=== PATIENT | female | born 1990 | race Two or more races ===

== ENCOUNTER 2018-12-07 01:26 | Emergency (ER) | payer OTHER, MEDICAID ==
[~2018-12-07] VITALS: Ht 160 cm; Wt 82.1 kg
[~2018-12-07 01:26] MED LIST: BENADRYL25 MG ORAL; PREDNISONE20 MG ORAL
[2018-12-07 01:42] VITALS: BP 141/74
--- NOTE | 2018-12-07 01:42 | NUR ---
ED Nurse Note: Pt arrived ED from home, c/o left ear pain 6/10 started tonight. Pt is A/O X 4. Vital signs stable at this time, waiting for orders.
[2018-12-07] MEDS ORDERED: IBUPROFEN600 MG ORAL (02:06)
[2018-12-07] MEDS ORDERED: CIPRODEX OTIC7.5 M1 LEFT EAR (02:06)
--- NOTE | 2018-12-07 02:06 | Emergency Room Report ---
History of Present Illness General Chief Complaint: General Complaint Source: Patient Present Illness HPI Is a 28-year-old female with no past medical history. She presents with chief, left ear pain. Onset this morning. She woke up with it. Also some tightness and swelling to the left lateral neck. No fever chills but no cough or congestion. Denies any other complaint. No injury. No recent swimming. Pain is 7 out of 10. Allergies: Uncoded Allergies: PCN (Allergy, Unknown, 04/15/16) Patient History Past Medical History: see triage record, old chart reviewed Past Surgical History: none Pertinent Family History: none Social History: Denies: smoking Last Menstrual Period: 11/15/18 Now: No Immunizations: other Reviewed Nursing Documentation: PMH: Agreed; PSxH: Agreed Review of Systems Eye: Denies: eye pain, blurred vision ENT: Reports: ear pain; Denies: nose congestion, throat swelling Respiratory: Denies: cough, shortness of breath Cardiovascular: Denies: chest pain, palpitations Gastrointestinal: Denies: abdominal pain, diarrhea, nausea, vomiting Musculoskeletal: Denies: back pain, joint pain Skin: Denies: rash Neurological: Denies: headache, numbness Endocrine: Denies: increased thirst, increased urine Hematologic/Lymphatic: Denies: easy bruising All Other Systems: negative except mentioned in HPI Physical Exam Vital Signs Date Time Temp Pulse Resp B/P (MAP) Pulse Ox O2 Delivery O2 Flow Rate FiO2 12/07/18 01:31 99.0 87 18 144/76 (98) 98 Room Air vitals unremarkable Sp02 EP Interpretation: reviewed, normal General Appearance: well appearing, no apparent distress, alert Head: normocephalic, atraumatic Eyes: bilateral eye PERRL, bilateral eye EOMI ENT: hearing grossly normal, normal pharynx, other - Left ear canal with some edema. Tenderness to movement of the pinna. TMs minimally erythematous Neck: full range of motion, supple, no meningismus Respiratory: chest non-tender, lungs clear, normal breath sounds Cardiovascular #1: regular rate, rhythm, no murmur Gastrointestinal: normal bowel sounds, non tender, no mass, no organomegaly, no bruit, non-distended Musculoskeletal: back normal, gait/station normal, normal range of motion Psychiatric: mood/affect normal Skin: warm/dry Medical Decision Making Diagnostic Impression: Primary Impression: Otitis externa Qualified Codes: H60.502 - Unspecified acute noninfective otitis externa, left ear ER Course Patient with otitis externa. No evidence of any URI. No evidence of any perforation. No evidence of any mastoiditis or meningitis. We'll discharge home. Last Vital Signs Date Time Temp Pulse Resp B/P (MAP) Pulse Ox O2 Delivery O2 Flow Rate FiO2 12/07/18 01:31 99.0 87 18 144/76 (98) 98 Room Air Status: unchanged Disposition: HOME, SELF-CARE Condition: Stable Scripts Ibuprofen* (MOTRIN*) 600 Mg Tablet 600 MG ORAL THREE TIMES A DAY, #30 TAB 0 Refills Prov: Antonio Martínez MD 12/07/18 Ciprofloxacin Hcl/Dexameth (CIPRODEX OTIC SUSPENSION) 7.5 Ml Drops.susp 4 DROP LEFT EAR TWICE A DAY, #10 ML Prov: Antonio Martínez MD 12/07/18 Additional Instructions: Follow-up with your doctor in 7 days. Return if worse. Antonio Martínez MD Dec 07, 2018 02:06
[2018-12-07 02:18] VITALS: BP 141/74
--- NOTE | 2018-12-07 02:18 | NUR ---
ER DISCHARGE NOTE: Patient is cleared to be discharged per Tanya. Pt is aox4 on room air with stable vital signs. Pt was given dc and prescription instructions and was able to verbalize understanding. Pt ID band and removed. pt is able to ambulate with steady gait and took all belongings.
== END 2018-12-07 02:18 | disposition home or self-care (01) ==
LOC: EMR 02:00
DX: H60.502 Unspecified acute noninfective otitis externa, left ear (principal); Z88.0 Allergy status to penicillin
CPT/HCPCS: 99282